=== PATIENT | male | born 1995 | race Caucasian/White ===

== ENCOUNTER 2022-01-13 01:47 | Emergency (ER) | payer SELFPAY ==
--- NOTE | ~2022-01-13 | XR_ITS ---
EXAMINATION: XR hand RT 2V DATE: 01/13/2022 04:06 INDICATION: Swollen right hand third digit. TECHNIQUE: 2 views of right hand were obtained. COMPARISON: None. FINDINGS: Bone alignment is normal. No fracture. Joint spaces are well maintained. IMPRESSION: 1. No fracture. Reviewed, dictated and finalized at location A. IMPRESSION: 1. No fracture.
--- NOTE | ~2022-01-13 | CT_ITS ---
EXAMINATION: CT brain wo con DATE: 01/13/2022 05:31 INDICATION: Altered mental status. TECHNIQUE: Computed tomography (CT) of the head was performed without intravenous contrast. The mA wa s adjusted according to patient size. Iterative reconstruction technique was employed. The dose-lengt h product was 681.00 mGy-cm. COMPARISON: Head CT 01/13/2022 FINDINGS: There is no intracranial hemorrhage, acute infarction, or abnormal intracranial mass lesion . The ventricles are normal in size. There is mucosal thickening in the paranasal sinuses. There are no pathologically enlarged lymph nodes. The mastoid air cells are normal. IMPRESSION: 1. Normal brain. Reviewed, dictated and finalized at location A. IMPRESSION: 1. Normal brain.
--- NOTE | ~2022-01-13 | XR_ITS ---
EXAMINATION: XR chest 1V portable DATE: 01/13/2022 04:06 INDICATION: Burning chest pain. TECHNIQUE: A single frontal view of the chest was obtained. COMPARISON: None. FINDINGS: The chest demonstrates clear lungs without pneumonia, pleural effusion, or pneumothorax. Th e heart size is normal. IMPRESSION: 1. No acute cardiopulmonary disease. Reviewed, dictated and finalized at location A.
--- NOTE | ~2022-01-13 | CT_ITS ---
EXAMINATION: CT brain wo con DATE: 01/13/2022 03:36 INDICATION: Transient alteration of awareness. TECHNIQUE: Computed tomography (CT) of the head was performed without intravenous contrast. The mA wa s adjusted according to patient size. Iterative reconstruction technique was employed. The dose-lengt h product was 1437.67 mGy-cm. COMPARISON: None. FINDINGS: Motion artifact is noted. There is no intracranial hemorrhage, acute infarction, or abnorma l intracranial mass lesion. The ventricles are normal in size. There is mucosal thickening in the par anasal sinuses. The orbits are normal. The mastoid air cells are normal. IMPRESSION: 1. No acute intracranial pathology. Sensitivity is severely decreased by motion artifact. Reviewed, dictated and finalized at location A.
[2022-01-13 01:47] VITALS: BP 106/90; PULSE 88; RESP 31; TEMP 37.6; O2SAT 100
--- NOTE | 2022-01-13 01:55 | ECG_ITS ---
Measurements Intervals [place] Rate: 90 P: -56 FL: 128 QRS: 57 QRSD: 98 T: 53 QT: 353 QTc: 432 Interpretive Statements SINUS RHYTHM NO PREVIOUS ECG AVAILABLE FOR COMPARISON Electronically Signed On 01-13-2022 8:48:28 CDT by Ryan Daley M.D.
[2022-01-13 02:17] LABS: Basophils Percent Auto 0.5 % (0.2-1.2); Eosinophils Absolute Auto 0.3 K/mm3 (0-0.3); Eosinophils Percent Auto 4.7 % (0-4.4); Hematocrit 43.4 % (42.0-52.0); Immature Granulocyte Absolute 0.02 K/mm3 (0.00-0.031); Immature Granulocyte Percent A 0.4 % (0-0.5); Lymphocytes Absolute Auto 1.98 K/mm3 (0.9-3.2); Lymphocytes Percent Auto 36.1 % (18.3-44.2); Mean Corpuscular HGB Conc 32.3 g/dl (32-36); Mean Corpuscular Hemoglobin 28.2 pg (26-34); Mean Corpuscular Volume 87.3 fl (80-100); Mean Platelet Volume 9.7 fl (7.4-10.4); Monocytes Absolute Auto 0.6 K/mm3 (0.1-0.6); Monocytes Percent Auto 10.2 % (2.6-8.5); Neutrophils Absolute Auto 2.6 K/mm3 (1.3-6.7); Neutrophils Percent Auto 48.1 % (45.5-73.1); Platelet Count Result 260 k/mm3 (150-375); Red Blood Count 4.97 M/mm3 (4.6-6.20); White Blood Count 5.5 K/mm3 (4.5-10.0)
[2022-01-13] MEDS: SODIUM CHLORIDE 0.9% IV 1,000 ML 999 ML IV CONT (02:24)
[2022-01-13 02:28] LABS: Alanine Aminotransferase 32 U/L (4-50); Albumin Level 4.6 g/dL (3.5-5.1); Alkaline Phosphatase 85 U/L (38-126); Anion Gap 7 mmol/L (8-16); Aspartate Amino Transferase 36 U/L (17-59); Bilirubin,Total 0.7 mg/dL (0.2-1.3); Blood Urea Nitrogen 17 mg/dL (9-20); Calcium 9.4 mg/dL (8.4-10.2); Carbon Dioxide 30 mmol/L (22-30); Chloride 103 mmol/L (98-107); Estimated Glomerular Filt Rate > 60; Glucose 125 mg/dL (65-110); Magnesium 2.1 mg/dL (1.6-2.3); Phosphorus 3.4 mg/dL (2.5-4.5); Potassium 3.9 mmol/L (3.4-5.0); Sodium 140 mmol/L (137-145)
--- NOTE | 2022-01-13 02:29 | ED.OVERDOSE ---
HPI - Overdose General Chief Complaint: Overdose Stated Complaint: ingestion of fentanyl unknown amount Time Seen by Provider: 01/13/22 01:54 Source: patient History of Present Illness HPI Narrative: Patient brought in for overdose evaluation. Patient was in police custody when he admitted to ingesting a unknown amount of fentanyl he became unresponsive he was given 8 mg of Narcan per EMS and please report there is no skin change in his mental status and is transferred to the ER for further evaluation. Related Data Home Medications Medication Instructions Recorded Confirmed Unable to Obtain Home Medications 01/13/22 01/13/22 Allergies Allergy/AdvReac Type Severity Reaction Status Date / Time Unable to Assess Allergy Verified 01/13/22 02:24 Review of Systems Review of Systems: ROS unobtainable: Yes unobtainable due to medical condition PMFSH Comments Unable to confirm past medical history surgical history or social history due to patient's mental status Exam Narrative: GENERAL: Well-appearing, well-nourished, and in no acute distress. HEAD: Normocephalic, atraumatic. EYES: PERRLA and EOMI. ENT: Nares clear, no rhinorrhea or epistaxis. Mucous membranes moist. NECK: Supple. No masses. No JVD CHEST: Clear to auscultation. No respiratory distress. No wheezes rales or rhonchi HEART: Regular rate and rhythm. No murmur heard. Normal peripheral pulses. ABDOMEN: Soft, nontender, nondistended, normal active bowel sounds. EXTREMITIES: Normal range of motion. No edema. SKIN: Warm, dry, no rash. NEURO: No focal deficits. localizes to painful stimuli PSYCH: Normal mood and affect. Course Reevaluation(s) Reevaluation #1: Patient is resting. Patient's right middle finger appear swollen ring was removed plain films obtained patient also complained of burning lungs. Date: 01/13/22 Time: 04:24 Reevaluation #2: Patient's initial CT scan was nondiagnostic due to motion artifact repeat CT scan obtained. Patient has intermittently been able to voice complaints throughout his ER stay such as his lungs are burning. Patient also complained about the Lara catheter reporting you are not allowed to put anything in my penis. Patient will not respond to questions and just grunt. His pupils have been equal reactive on multiple evaluations the continues to localize pain and intermittently recent medical interventions. Date: 01/13/22 Time: 05:57 Reevaluation #3: Patient now more arousable was made aware that all his blood tests and work-up thus far were reassuring his mental status was likely related to methamphetamine use. Patient did voice concerns that he has a blood infection would not give any additional details as to why he thinks that but he had a normal white count was afebrile throughout his ER stay and had no tachycardia. Date: 01/13/22 Time: 06:47 Vital Signs Vital signs: Vital Signs Temperature 37.6 C 01/13/22 01:47 Pulse Rate 88 01/13/22 01:47 Respiratory Rate 31 H 01/13/22 01:47 Blood Pressure 106/90 01/13/22 01:47 Pulse Oximetry 100 01/13/22 01:47 Temperature 37.6 C 01/13/22 01:47 Pulse Rate 82 01/13/22 06:34 Respiratory Rate 13 01/13/22 06:34 Blood Pressure 141/90 H 01/13/22 06:34 Pulse Oximetry 100 01/13/22 04:14 MDM - Overdose MDM Narrative Medical decision making narrative: Patient was brought in in police custody reporting he took an unknown amount of fentanyl. Patient was very combative initially but continued to localize to pain and was able to verbalize his complaints. Throughout his ER stay. Labs were clinically unremarkable for life-threatening process his UDS did test positive for amphetamines. His CT scan was clinically unremarkable for acute process. Patient was made aware that his work-up was reassuring and his symptoms are likely related to substance abuse. That he is appropriate to be released to police custody. Patient did verbalize his concerns for a blood infe
[2022-01-13 02:30] LABS: Add Urine Microscopic? YES; Appearance Urine Clear (Clear); Bilirubin Urine Negative (Negative); Blood Urine Negative (Negative); Color Urine Yellow (Yellow); Glucose Urine UA Negative (Negative); Ketones Urine Trace mg/dL (Negative); Leukocyte Esterase Ur Negative LEU/UL (Negative); Mucus Urine Rare /lpf; Nitrate Urine Negative (Negative); Protein Urine Negative (Negative); Squamous Epithelial Cell Urine Rare /hpf (Few); WBC Urine 0-3 /hpf
--- NOTE | 2022-01-13 02:31 | PC.NURSE ---
0210 - Pt exhibiting intermittent episodes of muscle rigidity and moaning, but was still alert to painful stimuli. EDP called to bedside. Pt then spontaneously attempted to sit up and get out of bed, yelling where am I? . EDP and this RN attempted to reorient pt, unsuccessful. Pt then started thrashing on stretcher, resisting and attempting to bite ED staff members. 0220 - VORB obtained for violent restraints per EDP El. Applied at this time.
[2022-01-13 02:33] LABS: Acetaminophen < 10 ug/mL (10-30); Ammonia < 9 umol/L (9-30); Ethanol < 10 mg/dL (<10); Salicylate < 1.0 mg/dL (2-20)
[2022-01-13 02:42] LABS: Creatine Kinase 242 U/L (55-170)
[2022-01-13 02:44] VITALS: BP 142/75; PULSE 90; RESP 21; O2SAT 100
[2022-01-13 02:47] LABS: Barbiturate Screen Urine Negative (Negative); Benzodiazepines Screen Urine Negative (Negative)
[2022-01-13 02:49] LABS: Cannabinoid Screen Urine Positive (Negative); Cocaine Screen Urine Negative (Negative); Methadone Screen Urine Negative (Negative); Opiate Screen Urine Negative (Negative); Phencyclidine Screen Urine Negative (Negative)
[2022-01-13 02:54] VITALS: RESP 24
[2022-01-13 03:16] LABS: Amphetamine Screen Urine Positive (Negative)
--- NOTE | 2022-01-13 03:25 | PC.NURSE ---
Pt c/o right middle finger and left lung pain. EDP notified, new orders on chart.
[2022-01-13 04:14] VITALS: PULSE 84; RESP 23; O2SAT 100
--- NOTE | 2022-01-13 04:15 | PC.NURSE ---
Pt resting on stretcher, eyes closed. Calm, in no obvious distress. PD at bedside.
[2022-01-13 04:50] VITALS: BP 127/78
[2022-01-13 06:34] VITALS: BP 141/90; PULSE 82; RESP 13
--- NOTE | 2022-01-13 06:50 | PC.NURSE ---
pt cussing at RN during removal of urinary catheter, IV catheter, and monitoring devices. pt stating, fuck you! .
== END 2022-01-13 07:02 ==
PROVIDERS: Emergency Provider Emergency Medicine
DX: T50.904A Poisoning by unspecified drugs, medicaments and biological substances, undetermined, initial encounter (principal)
CPT/HCPCS: 36415; 70450; 71045; 73120; 80053; 80307; 81001; 82140; 82550; 83735; 84100; 85025; 93005; 96360; 99284; J2060; J7030